=== PATIENT | female | born 1960 | race Caucasian/White ===

== ENCOUNTER 2016-08-16 16:13 | Emergency (ER) | payer MEDICAID ==
[~2016-08-16] VITALS: Ht 167.6 cm; Wt 46.3 kg
[~2016-08-16 16:13] MED LIST: ACET325T53 PO; HYDR-3326 PO
--- NOTE | 2016-08-16 16:20 | NUR ---
PT BIBRA TO ER BED 11. SYNCOPAL EPISODE PER REPORT. NO OBVIOUS TRAUMA. 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 PT STATES WAS TAKING A WALK IN THE PARK. ALSO C/O GENERALIZED WEAKNESS AND PAIN. GOWNED AND PLACED ON MONITOR. AWAITING MD QUINTANILLA.
--- NOTE | 2016-08-16 16:48 | NUR ---
DR MCDUFFIE AT BEDSIDE FOR EVAL.
--- NOTE | 2016-08-16 17:06 | NUR ---
COMMUNICATIONS CONTROLLER AT BEDSIDE FOR BLOO DRAW.
--- NOTE | 2016-08-16 17:29 | NUR ---
PT TO RADIOLOGY FOR HEAD CT SCAN VIA [facility].
[2016-08-16 17:33] LABS: BASOPHILS % (AUTO) 0.2 % (0.0-2.0); EOSINOPHILS # (AUTO) 0.2 /CMM (0.0-0.7); EOSINOPHILS % (AUTO) 2.9 % (0.0-6.0); HEMATOCRIT 37 % (33-45); HEMOGLOBIN 12.2 g/dL (11.5-14.8); LYMPHOCYTES # (AUTO) 1.6 /CMM (0.8-4.8); LYMPHOCYTES % (AUTO) 21.1 % (20.0-44.0); MEAN CORPUSCULAR HEMOGLOBIN 30 PG (26.0-33.0); MEAN CORPUSCULAR HGB CONC 33 g/dl (31.0-36.0); MEAN CORPUSCULAR VOLUME 90 fL (82-100); MONOCYTES # (AUTO) 0.4 /CMM (0.1-1.30); MONOCYTES % (AUTO) 5.5 % (2.0-12.0); NEUTROPHILS # (AUTO) 5.3 /CMM (1.8-8.9); NEUTROPHILS % (AUTO) 70.3 % (43.0-81.0); PLATELET COUNT (AUTO) 413 /CMM (150-450); RDW COEFFICIENT OF VARIATION 12.9 (11.5-15.0); RED BLOOD CELL COUNT(AUTO) 4.14 MIL/uL (4.0-5.2); WHITE BLOOD COUNT (AUTO) 7.5 K/uL (4.3-11.0)
[2016-08-16 17:42] LABS: CALCIUM, SERUM 8.9 mg/dL (8.5-10.1); CARBON DIOXIDE 28 mmol/L (21-32); CHLORIDE 103 mmol/L (98-107); CREATININE 0.7 mg/dL (0.6-1.3); GFR 87 mL/min (>60); GLUCOSE 109 mg/dL (74-106); POTASSIUM 3.8 mmol/L (3.5-5.1); SODIUM SERUM 141 mmol/L (136-145); UREA NITROGEN, BLOOD 13 mg/dL (7-18)
[2016-08-16 17:49] LABS: ALANINE AMINOTRANSFERASE 27 U/L (12-78); ALBUMIN 3.7 g/dL (3.4-5.0); ALKALINE PHOSPHATASE 72 U/L (46-116); ASPARTATE AMINOTRANSFERASE 18 U/L (15-37); BILIRUBIN,DIRECT 0.1 mg/dL (0.0-0.2); BILIRUBIN,TOTAL 0.4 mg/dL (0.2-1.0); TOTAL PROTEIN, SERUM 7.1 g/dL (6.4-8.2); TROPONIN I < 0.017 ng/mL (0.00-0.056)
[2016-08-16 18:32] LABS: INR 0.9 (0.87-1.13); PROTHROMBIN TIME 9.6 SECS (9.5-12.7)
--- NOTE | 2016-08-16 19:00 | NUR ---
Patient discharged to home in stable condition. Written and verbal after care instructions given. Patient verbalizes understanding of instruction.
[2016-08-16 19:01] VITALS: BP 126/84
== END 2016-08-16 19:01 | disposition home or self-care (01) ==
LOC: ER 16:16
DX: R55 Syncope and collapse (principal); B37.2 Candidiasis of skin and nail; F17.200 Nicotine dependence, unspecified, uncomplicated; Z88.8 Allergy status to other drugs, medicaments and biological substances; Z85.820 Personal history of malignant melanoma of skin
CPT/HCPCS: 36415; 70450-TC; 71010-TC; 72100-TC; 72125-TC; 80048-TC; 80076-TC; 84484-TC; 85025-TC; 85730-TC; A4606; Z7610

== ENCOUNTER 2016-09-01 12:21 | Emergency (ER) | payer MEDICAID ==
[~2016-09-01] VITALS: Ht 170.2 cm; Wt 47.6 kg
--- NOTE | 2016-09-01 12:37 | NUR ---
PT BIB SELF S/P "FAINTED" WHILE WALKING. NO HEAD TRAUMA NOTED. C/O GENERALIZED BODY PAIN AND "CRUSHING HEAD PAIN". REPORTS TINGLING IN ALL EXTREMITIES. AMBULATORY WITH SLOW BUT STEADY GAIT. REPORTS HISTORY OF FAINTING, UNABLE TO RECALL PAST DIAGNOSIS. ASKING FOR DILAUDID WHILE IN TRIAGE ROOM. VSS. NAD NOTED. RESP EVEN UNLABORED. NAD NOTED. IN ER BED 11.
[2016-09-01] MEDS ORDERED: HYDROCODONE/APAP 5/325MG 1 EACH TABLET PO ONE (13:00)
[2016-09-01] MEDS ORDERED: HYDROCODONE/APAP 5/325MG 1 EACH TABLET ONE (13:02)
[2016-09-01 13:04] LABS: BASOPHILS % (AUTO) 0.6 % (0.0-2.0); EOSINOPHILS # (AUTO) 0.1 /CMM (0.0-0.7); EOSINOPHILS % (AUTO) 2.4 % (0.0-6.0); HEMATOCRIT 34 % (33-45); HEMOGLOBIN 11.6 g/dL (11.5-14.8); LYMPHOCYTES # (AUTO) 1.6 /CMM (0.8-4.8); LYMPHOCYTES % (AUTO) 33.9 % (20.0-44.0); MEAN CORPUSCULAR HEMOGLOBIN 31 PG (26.0-33.0); MEAN CORPUSCULAR HGB CONC 34 g/dl (31.0-36.0); MEAN CORPUSCULAR VOLUME 91 fL (82-100); MONOCYTES # (AUTO) 0.4 /CMM (0.1-1.30); MONOCYTES % (AUTO) 8.2 % (2.0-12.0); NEUTROPHILS # (AUTO) 2.7 /CMM (1.8-8.9); NEUTROPHILS % (AUTO) 54.9 % (43.0-81.0); PLATELET COUNT (AUTO) 431 /CMM (150-450); RDW COEFFICIENT OF VARIATION 12.6 (11.5-15.0); RED BLOOD CELL COUNT(AUTO) 3.79 MIL/uL (4.0-5.2); WHITE BLOOD COUNT (AUTO) 4.8 K/uL (4.3-11.0)
[2016-09-01 13:13] LABS: CALCIUM, SERUM 9.1 mg/dL (8.5-10.1); CARBON DIOXIDE 29 mmol/L (21-32); CHLORIDE 105 mmol/L (98-107); CREATININE 0.6 mg/dL (0.6-1.3); GFR 103 mL/min (>60); GLUCOSE 105 mg/dL (74-106); POTASSIUM 3.7 mmol/L (3.5-5.1); SODIUM SERUM 140 mmol/L (136-145); UREA NITROGEN, BLOOD 13 mg/dL (7-18)
--- NOTE | 2016-09-01 13:13 | NUR ---
PT TRANSPORTED TO CT IN STABLE CONDITION
[2016-09-01 13:19] LABS: ALANINE AMINOTRANSFERASE 18 U/L (12-78); ALBUMIN 3.9 g/dL (3.4-5.0); ALKALINE PHOSPHATASE 66 U/L (46-116); ASPARTATE AMINOTRANSFERASE 14 U/L (15-37); BILIRUBIN,DIRECT 0.1 mg/dL (0.0-0.2); BILIRUBIN,TOTAL 0.4 mg/dL (0.2-1.0); TOTAL PROTEIN, SERUM 7.1 g/dL (6.4-8.2)
[2016-09-01 13:21] LABS: TROPONIN I < 0.017 ng/mL (0.00-0.056)
[2016-09-01 14:34] VITALS: BP 114/71
--- NOTE | 2016-09-01 14:34 | NUR ---
Patient discharged to home in stable condition. Written and verbal after care instructions given. Patient verbalizes understanding of instruction. NAD NOTED.
== END 2016-09-01 14:35 | disposition home or self-care (01) ==
LOC: ER 12:24
DX: R55 Syncope and collapse (principal); R51 Headache; C43.9 Malignant melanoma of skin, unspecified; F17.200 Nicotine dependence, unspecified, uncomplicated; Z88.8 Allergy status to other drugs, medicaments and biological substances; Z59.0 Homelessness
CPT/HCPCS: 36415; 70450; 71010; 72125; 80048; 80076; 84484; 85025; 93005; 99285; A4606; Z7610